=== PATIENT | male | born 1950 | race Two or more races ===

== ENCOUNTER 2016-12-12 08:59 | Emergency (ER) | payer MEDICAID, MEDICARE ==
--- NOTE | 2016-12-12 10:40 | ED ---
Skin Complaint - HPI Summary HPI Summary: Patient presents with son who is translating with diffuse dusky red macular papular rash to the back and nape of the neck which is now spreading to the abdomen and upper extremities. The area is pruritic, but not painful. He also notes to a boil to the right upper back which has been growing in size x 2 weeks. The area is fluctuant and measures 2x2. The area has not been draining and he has not used anything for relief of the boil. He sustained radiation therapy for his prostate CA 6 months ago and developed a rash 2 months ago. His PCP stated it was a rash from the radiation therapy. However, he was given permethrin cream and clotrimazole cream 1 month ago to use simultaneously and he states the area had become worse since that time. No one else in the house has a rash. He has never had a skin fungal infection or bacterial infection before. Denies other symptoms at this time. - History of Current Complaint Chief Complaint: EDRashSkinAbscess Time Seen by Provider: 12/12/16 09:08 Stated Complaint: RASH ON BACK Hx Obtained From: Patient Onset/Duration: Started Weeks Ago - months ago, Atraumatic Skin Exposure Onset/Duration: Worse Since: - 2 months ago Timing: Constant Onset Severity: Moderate Current Severity: Moderate Pain Intensity: 0 Pain Scale Used: 0-10 Numeric Skin Location: Diffuse Character: Pruritus, Redness, Raised Aggravating Symptom(s): Nothing Alleviating Symptom(s): Nothing - Allergy/Home Medications Allergies/Adverse Reactions: Allergies Allergy/AdvReac Type Severity Reaction Status Date / Time No Known Allergies Allergy Verified 12/12/16 09:21 Home Medications: Home Medications Clopidogrel TAB* [Plavix TAB*] 1 tab PO DAILY 12/12/16 [History Confirmed ] Clotrimazole 1% CREAM* 1 applic TOPICAL DAILY 12/12/16 [History Confirmed ] Enalapril TAB* [Vasotec TAB*] 1 tab PO DAILY 12/12/16 [History Confirmed ] Permethrin 5% CREAM* 1 applic TOPICAL DAILY 12/12/16 [History Confirmed 12/12/16 ] Pravastatin Sodium [Pravachol] 20 mg PO BEDTIME 12/12/16 [History Confirmed ] amLODIPine TAB* [Norvasc 5 mg TAB*] 1 tab PO DAILY 12/12/16 [History Confirmed 12/12/16] PMH/Surg Hx/FS Hx/Imm Hx Previously Healthy: Yes Endocrine/Hematology History: Denies: Hx Diabetes Cardiovascular History: Denies: Hx Hypertension, Hx Pacemaker/ICD History: Denies: Hx Renal Disease Sensory History: Denies: Hx Hearing Aid Psychiatric History: Denies: Hx Panic Disorder - Cancer History Cancer Type, Location and Year: PROSTATE - Immunization History Hx Pertussis Vaccination: No Immunizations Up to Date: Unable to Obtain/Confirm Infectious Disease History: No Infectious Disease History: Denies: Traveled Outside the [place] in Last 30 Days - Social History Occupation: Unemployed Lives: With Family Alcohol Use: None Hx Substance Use: No Substance Use Type: Reports: None Hx Tobacco Use: No Smoking Status (MU): Former Smoker Review of Systems Constitutional: Negative Eyes: Negative Respiratory: Negative Gastrointestinal: Negative Positive: no symptoms reported, see HPI Positive: Rash Neurological: Negative Psychological: Normal All Other Systems Reviewed And Are Negative: Yes Physical Exam Triage Information Reviewed: Yes Vital Signs On Initial Exam: Initial Vitals Temp Pulse Resp BP Pulse Ox 98.3 F 87 18 159/78 96 12/12/16 09:02 12/12/16 09:02 12/12/16 09:02 12/12/16 09:02 12/12/16 09:02 Vital Signs Reviewed: Yes Appearance: Positive: Well-Appearing, Well-Nourished Skin: Positive: Other - diffuse rash Head/Face: Positive: Normal Head/Face Inspection Eyes: Positive: EOMI, COURT, Conjunctiva Clear Neck: Positive: Supple, No Lymphadenopathy Respiratory/Lung Sounds: Positive: Clear to Auscultation, Breath Sounds Present Cardiovascular: Positive: Normal, RRR Musculoskeletal: Positive: Strength/ROM Intact Neurological: Positive: Alert, Oriented to Person Place, Time, Speech Normal Psychiatric: Positive: Normal Diagnostics - Vital Signs Vital Signs Temp Pulse Resp BP Pulse Ox 12/12/16 09:30 83 130/78 94 12/12/16 09:19 87 94 12/12/16 09:18 143/79 12/12/16 09:17 98.7 F 75 16 143/79 94 12/12/16 09:02 98.3 F 87 18 159/78 96 - Laboratory Lab Statement: Any lab studies that have been ordered have been reviewed, and results considered in the medical decision making process. Course/Dx - Course Course Of Treatment: diffuse dusky red macular papular rash to the back and nape of the neck which is now spreading to the abdomen and upper extremities. The area is pruritic, but not painful. He also notes to a boil to the right upper back which has been growing in size x 2 weeks. The area is fluctuant and measures 2x2. Performed I and D with 1% lidocaine adjacent to the wound. Used 15 blade atop the wound to create a .5cm opening. Copious amount of drainage. Wound culture obtained and sent. Bandage applied. Area was not large enough to require packing. Wound care given. For diffuse rash, will give fluconazole 300mg once daily for 2 weeks for possible yeast infection. Does not appear to be dermatophytes. Follow up with dermatology. Information given. Medications were reveiwed with patient. Encouarged to follow up with PCP or return to ED for worsening symptoms. Return precautions given. Patient understands and agrees with plan. Ok for discharge. - Differential Diagnoses - Skin Complaint Differential Diagnoses: Abscess, Cellulitis, Tinea, Urticaria - Diagnoses Provider Diagnoses: Rash of back Discharge - Discharge Plan Condition: Stable Disposition: HOME Prescriptions: Fluconazole [Fluconazole 150 mg tab] 150 mg PO DAILY #28 tab Patient Education Materials: Abscess (ED), Skin Yeast Infection (ED) Print Language: FAROESE Referrals: Eddie Bennett MD [Primary Care Provider] - Additional Instructions: Follow up with Dermatology if symptoms continue or worsen: [facility] Address: [address] [place] [address], [place] [address] Continue with Fluconazole 300mg daily for 14 days. Change gauze daily as the area continues to drain. Wash with soap and water like normal. If you develop redness, streaks of red around the wound, swelling, abnormal drainage or you develop a fever - you need to come back to the ED right away.
[2016-12-12 11:57] VITALS: BP 132/84
== END 2016-12-12 10:42 | disposition home or self-care (01) ==
LOC: ED 08:59
DX: R21 Rash and other nonspecific skin eruption (principal); Z85.46 Personal history of malignant neoplasm of prostate; Z87.891 Personal history of nicotine dependence
CPT/HCPCS: 87070; 87076; 87205; 87640; 87641; 99283

== ENCOUNTER 2024-03-26 01:02 | Inpatient (IN) ==
[2024-03-26 01:22] LABS: ABS Eosinophils 0.1 10^3/uL (0.0-0.5); ABS Lymphocytes 2.2 10^3/uL (1.0-4.8); ABS Neutrophils 3.5 10^3/uL (1.5-7.6); Eosinophil % 1.6 %; Hematocrit 40.1 % (38-53); Hemoglobin 13.1 g/dL (13.2-16.3); Mean Corpuscular Hemoglobin 27.5 pg (27-33); Mean Corpuscular Hgb Conc 32.6 g/dL (31-36); Mean Corpuscular Volume 84.5 fL (80-97); Platelet Count 259 10^3/uL (150-450); Red Blood Count 4.75 10^6/uL (4.06-5.63); Red Cell Distribution Width 16.8 % (12-17); White Blood Count 6.7 10^3/uL (3.6-10.2)
[2024-03-26] MEDS: Heparin - STEMI 5,000 UNITS/ML 1 ml VIAL IV ONE (01:30)
[2024-03-26 01:34] LABS: INR 1.05 (0.85-1.14)
[2024-03-26] MEDS ORDERED: Midazolam 5 mg/5 ml VIAL 1 mg/ml 5 ml VIAL (5 mg) ONE (01:36)
[2024-03-26] MEDS ORDERED: fentaNYL 250 mcg/5 ml 50 MCG/ML 5 ml VIAL (250 MCG) ONE ×2 (01:37→15:50)
[2024-03-26] MEDS ORDERED: VERAPAMIL 2.5 MG/ML 2 ML VIAL ** 5 mg/2 ml ONE (01:37)
[2024-03-26] MEDS ORDERED: Heparin 1,000 UNIT/ML 10 ml (10,000 UNITS) CATHLAB/DIALYSIS ONE (01:37)
[2024-03-26] MEDS ORDERED: Iohexol 350 (CONTRAST) 200 ML MDV IV ONE (01:39)
[2024-03-26] MEDS ORDERED: fentaNYL 100 mcg/2 ml 50 MCG/ML VIAL ONE (01:39)
[2024-03-26] MEDS ORDERED: Heparin 2 UNITS/ML 1000 mls 2,000 ML IV ONE (01:39)
[2024-03-26] MEDS ORDERED: nitroGLYCERIN DRIP 25,000 MCG/250 ML BTL ONE (01:39)
[2024-03-26] MEDS ORDERED: Lidocaine 1% MPF 5 ML VIAL ONE (01:39)
[2024-03-26 02:07] LABS: Albumin/Globulin Ratio 1.1 (1-3); Calcium 9.2 mg/dL (8.6-10.3); Creatinine, Serum 1.25 mg/dL (0.67-1.17); Globulin 3.7 g/dL (2-4); Potassium 3.9 mmol/L (3.5-5.0); Total Bilirubin 0.3 mg/dL (0.2-1.0); Total Protein 7.7 g/dL (6.4-8.9); eGFR CKD-EPI 60.1 (>60)
[2024-03-26] MEDS ORDERED: Bivalirudin 250 MG VIAL ONE (02:15)
[2024-03-26] MEDS ORDERED: Atropine 0.1 MG/ML 10 ml SYR (1 mg) ONE ×2 (02:32→15:45)
[2024-03-26] MEDS ORDERED: Phenylephrine 40 mcg/mL 10mL (400mcg) SYRINGE ONE (02:35)
[2024-03-26] MEDS ORDERED: Norepinephrine 4 MG/250mL D5W 0 MCG/0 ML BAG IV ONE (02:41)
[2024-03-26] MEDS: NS 0.9% 1000 ml BAG 1,000 ML IV SCH (03:15)
[2024-03-26 08:12] LABS: Magnesium 1.8 mg/dL (1.9-2.7)
[2024-03-26] MEDS: Sulfur Hexaflouride MICROSPHR 25 MG VIAL IV PRN (08:12)
[2024-03-26] MEDS: Magnesium Sulfate 2 gm BAG 2 GM/50 ML BAG IVPB ONE (09:44)
[2024-03-26] MEDS: Potassium Chlor 20 meq TAB.ER PO ONE (10:33)
[2024-03-26 10:38] LABS: ABS Lymphocytes 1.5 10^3/uL (1.0-4.8); ABS Monocytes 0.7 10^3/uL (0.0-1.1); ABS Neutrophils 4.6 10^3/uL (1.5-7.6); ABS Nucleated RBC 0.01 10^3/ul; Eosinophil % 0.5 %; Hematocrit 36.9 % (38-53); Hemoglobin 11.7 g/dL (13.2-16.3); Lymphocyte % 21.8 %; Mean Corpuscular Hgb Conc 31.7 g/dL (31-36); Mean Corpuscular Volume 85.2 fL (80-97); Mean Platelet Volume 9.8 fL (7.5-11.2); Nucleated Red Blood Cells % 0.1 %/100WBC (0.0-0.8); Platelet Count 228 10^3/uL (150-450); Red Blood Count 4.33 10^6/uL (4.06-5.63); White Blood Count 6.9 10^3/uL (3.6-10.2)
[2024-03-26 10:42] LABS: Calcium 8.5 mg/dL (8.6-10.3); Creatinine, Serum 1.02 mg/dL (0.67-1.17); HDL Cholesterol 29.5 mg/dL; Potassium 4.2 mmol/L (3.5-5.0); eGFR CKD-EPI 76.6 (>60)
[2024-03-26] MEDS ORDERED: EPINEPHrine SYR 0.1MG/ML 10 ml SYRINGE IV ONE (15:46)
[2024-03-27 04:17] LABS: ABS Basophils 0.1 10^3/uL (0.0-0.1); ABS Eosinophils 0.1 10^3/uL (0.0-0.5); ABS Lymphocytes 1.4 10^3/uL (1.0-4.8); ABS Monocytes 0.8 10^3/uL (0.0-1.1); ABS Neutrophils 4.3 10^3/uL (1.5-7.6); ABS Nucleated RBC 0.01 10^3/ul; Eosinophil % 1.5 %; Hematocrit 36.3 % (38-53); Hemoglobin 11.9 g/dL (13.2-16.3); Lymphocyte % 21.2 %; Mean Corpuscular Hemoglobin 27.6 pg (27-33); Mean Corpuscular Hgb Conc 32.7 g/dL (31-36); Mean Corpuscular Volume 84.3 fL (80-97); Mean Platelet Volume 9.2 fL (7.5-11.2); Nucleated Red Blood Cells % 0.1 %/100WBC (0.0-0.8); Platelet Count 242 10^3/uL (150-450); Red Cell Distribution Width 16.7 % (12-17); White Blood Count 6.7 10^3/uL (3.6-10.2)
[2024-03-27 05:06] LABS: ALT 26 U/L (7-52); Albumin 3.6 g/dL (3.2-5.2); Albumin/Globulin Ratio 1.2 (1-3); Alkaline Phosphatase 81 U/L (35-149); Anion Gap 6 mmol/L (2-16); Blood Urea Nitrogen 20 mg/dL (6-24); CO2 Carbon Dioxide 27 mmol/L (22-32); Calcium 8.9 mg/dL (8.6-10.3); Chloride 105 mmol/L (101-111); Cholesterol 103 mg/dL; Creatinine, Serum 1.04 mg/dL (0.67-1.17); Globulin 3.1 g/dL (2-4); Glucose 102 mg/dL (70-100); HDL Cholesterol 27.4 mg/dL; LDL Cholesterol 54 mg/dL; Sodium 138 mmol/L (135-145); Total Bilirubin 0.6 mg/dL (0.2-1.0); Total Protein 6.7 g/dL (6.4-8.9); Triglycerides 109 mg/dL; eGFR CKD-EPI 74.9 (>60)
[2024-03-27 07:01] LABS: Potassium Redraw 4.1 mmol/L (3.5-5.0)
[2024-03-27 08:17] LABS: Magnesium 2.1 mg/dL (1.9-2.7)
[2024-03-27 11:01] VITALS: BP 116/72
== END 2024-03-27 10:45 | disposition home or self-care (01) | DRG 322 ==
LOC: AA 01:02 → ED 01:02 → ICU 01:50

== ENCOUNTER 2024-04-01 05:25 | Inpatient (IN) ==
[2024-04-01 06:12] LABS: ABS Basophils 0.1 10^3/uL (0.0-0.1); ABS Lymphocytes 0.7 10^3/uL (1.0-4.8); ABS Monocytes 1.3 10^3/uL (0.0-1.1); ABS Neutrophils 13.2 10^3/uL (1.5-7.6); ABS Nucleated RBC 0.01 10^3/ul; Hematocrit 39.4 % (38-53); Hemoglobin 12.9 g/dL (13.2-16.3); Lymphocyte % 4.5 %; Mean Corpuscular Hgb Conc 32.6 g/dL (31-36); Mean Corpuscular Volume 85.7 fL (80-97); Mean Platelet Volume 9.5 fL (7.5-11.2); Platelet Count 226 10^3/uL (150-450); Red Cell Distribution Width 16.8 % (12-17); White Blood Count 15.2 10^3/uL (3.6-10.2)
[2024-04-01 06:47] LABS: Albumin/Globulin Ratio 1.2 (1-3); C Reactive Protein 65.3 mg/L (<8.01); Calcium 8.8 mg/dL (8.6-10.3); Creatinine, Serum 1.65 mg/dL (0.67-1.17); Globulin 3.4 g/dL (2-4); Potassium 4.2 mmol/L (3.5-5.0); Total Bilirubin 0.7 mg/dL (0.2-1.0); Total Protein 7.4 g/dL (6.4-8.9)
[2024-04-01] MEDS: Morphine 4 MG/ML VIAL (1 ml) IV ONE ×2 (06:51→09:40)
[2024-04-01] MEDS: Ondansetron 4 mg VIAL 2 MG/ML 2 ml VIAL IV ONE (06:51)
[2024-04-01] MEDS ORDERED: Iodixanol 320 (CONTRAST) 100 ML SDV IV ONE (07:57)
[2024-04-01] MEDS: Lactated Ringers 1000 ml BAG 1,000 ML IV ONE ×2 (08:42→10:34)
[2024-04-01] MEDS: Amoxicillin/Clavul 875/125 TAB (Augmentin 875 tab) PO ONE (09:39)
[2024-04-01] MEDS ORDERED: Zosyn per Pharmacy NOTE FOLLOW UP SCH (11:00)
[2024-04-01] MEDS: Piperacillin/Tazobac 3.375 BAG 3.375 GM/100 ML BAG IV ONE (11:53)
[2024-04-01] MEDS: Lactated Ringers 1000 ml BAG 1,000 ML IV SCH (11:53)
[2024-04-01] MEDS: Enoxaparin 40 MG/0.4 ML SYR SUBCUT SCH (11:58)
[2024-04-01] MEDS ORDERED: ZOSYN 3.375 GM Q8H per EXTENDED INFUSION IV SCH (16:00)
[2024-04-01] MEDS: Acetaminophen IV 1 GM/100ML 1,000 MG/100 ML BAG IV PRN (16:33)
[2024-04-01 17:50] LABS: Urine Appearance Extra Turbid; Urine Bacteria 1+ /HPF (Absent); Urine Bilirubin Negative (Negative); Urine Blood 3+ (Negative); Urine Glucose Negative (Negative); Urine Ketones 1+ (Negative); Urine Nitrite Negative (Negative); Urine Protein 3+ (>=300 mg/dL) (Negative); Urine Red Blood Cell 3+(>10/hpf) /HPF (0-Trace); Urine Specific Gravity >1.050 (1.002-1.030); Urine Urobilinogen Negative (Negative); Urine White Blood Cell 3+(>20/hpf) /HPF (0-Trace)
[2024-04-01 17:51] LABS: Urine Color Light-Brown
[2024-04-01] MEDS: ZOSYN 3.375 GM x ONE DOSE over 30 miuntes IV (20:25)
[2024-04-02] MEDS ORDERED: ZOSYN 3.375 GM Q8H per EXTENDED INFUSION IV SCH (00:30)
[2024-04-02] MEDS: ZOSYN 3.375 GM Q8H per EXTENDED INFUSION IV SCH (00:52)
[2024-04-02 06:32] LABS: ABS Lymphocytes 0.6 10^3/uL (1.0-4.8); ABS Monocytes 0.8 10^3/uL (0.0-1.1); ABS Neutrophils 7.9 10^3/uL (1.5-7.6); Hematocrit 32.5 % (38-53); Hemoglobin 10.9 g/dL (13.2-16.3); Lymphocyte % 6.9 %; Mean Corpuscular Hemoglobin 28.1 pg (27-33); Mean Corpuscular Hgb Conc 33.4 g/dL (31-36); Mean Platelet Volume 9.5 fL (7.5-11.2); Platelet Count 153 10^3/uL (150-450); Red Blood Count 3.87 10^6/uL (4.06-5.63); White Blood Count 9.3 10^3/uL (3.6-10.2)
[2024-04-02 06:53] LABS: Albumin 2.9 g/dL (3.2-5.2); Albumin/Globulin Ratio 1.1 (1-3); Calcium 7.6 mg/dL (8.6-10.3); Creatinine, Serum 1.71 mg/dL (0.67-1.17); Globulin 2.7 g/dL (2-4); Magnesium 1.5 mg/dL (1.9-2.7); Potassium 3.6 mmol/L (3.5-5.0); Total Bilirubin 0.8 mg/dL (0.2-1.0); Total Protein 5.6 g/dL (6.4-8.9); eGFR CKD-EPI 41.2 (>60)
[2024-04-02] MEDS: Lactated Ringers 1000 ml BAG 1,000 ML IV SCH (10:02)
[2024-04-02] MEDS: Magnesium Sulf 4 GM/100 ML IV 4,000 MG/100 ML BAG IVPB ONE (10:02)
[2024-04-02] MEDS: Al Hydrox/Mg Hydrox/Simet LIQ 30 ML UDC PO PRN (11:22)
[2024-04-03 09:32] LABS: Urine Appearance Turbid; Urine Bacteria Absent /HPF (Absent); Urine Bilirubin Negative (Negative); Urine Blood 3+ (Negative); Urine Glucose Negative (Negative); Urine Ketones Negative (Negative); Urine Nitrite Negative (Negative); Urine Protein 1+ (>=30 mg/dL) (Negative); Urine Red Blood Cell 3+(>10/hpf) /HPF (0-Trace); Urine Specific Gravity 1.014 (1.002-1.030); Urine Urobilinogen Negative (Negative); Urine White Blood Cell 3+(>20/hpf) /HPF (0-Trace); Urine pH 5.5 (5.0-8.0)
[2024-04-03 09:33] LABS: Urine Color Amber
[2024-04-03] MEDS: Azithromycin 500 mg/250 ml NS 500 MG/250 ML BAG IVPB SCH (09:45)
[2024-04-03 09:50] LABS: Hematocrit 35.4 % (38-53); Hemoglobin 11.5 g/dL (13.2-16.3); Mean Corpuscular Hemoglobin 27.4 pg (27-33); Mean Corpuscular Hgb Conc 32.6 g/dL (31-36); Mean Corpuscular Volume 84.1 fL (80-97); Mean Platelet Volume 9.8 fL (7.5-11.2); Platelet Count 169 10^3/uL (150-450); Red Blood Count 4.21 10^6/uL (4.06-5.63); Red Cell Distribution Width 17.1 % (12-17); White Blood Count 8.3 10^3/uL (3.6-10.2)
[2024-04-03 10:10] LABS: Creatinine, Serum 1.61 mg/dL (0.67-1.17); Globulin 2.9 g/dL (2-4); Potassium 3.7 mmol/L (3.5-5.0); Total Bilirubin 0.6 mg/dL (0.2-1.0); Total Protein 5.9 g/dL (6.4-8.9); eGFR CKD-EPI 44.3 (>60)
[2024-04-03 10:14] LABS: ABS Eosinophils 0.1 10^3/uL (0.0-0.5); ABS Lymphocytes 0.7 10^3/uL (1.0-4.8); ABS Neutrophils 6.5 10^3/uL (1.5-7.6); Eosinophil % 1.1 %; Large Platelets Present
[2024-04-04 06:55] LABS: Creatinine, Serum 1.63 mg/dL (0.67-1.17); Potassium 3.5 mmol/L (3.5-5.0); eGFR CKD-EPI 43.7 (>60)
[2024-04-04] MEDS: Azithromycin 500 mg/250 ml NS 500 MG/250 ML BAG IVPB SCH (08:58)
[2024-04-04 09:12] VITALS: BP 135/61
== END 2024-04-04 13:20 | disposition home or self-care (01) | DRG 871 ==
LOC: EDHOLD 05:25 → ED 05:25 → MED 07:57 → SUATTDRO 10:11 → MED 12:47
PROVIDERS: ADMIT Student in an Organized Health Care Education/Training Program; ATTEND Internal Medicine